=== PATIENT | male | born 1985 | race Caucasian/White ===

== ENCOUNTER 2017-02-14 12:13 | Emergency (ER) | payer SELFPAY ==
[~2017-02-14] VITALS: Ht 177.8 cm; Wt 86.2 kg
--- NOTE | 2017-02-14 13:10 | ED.ADGEN ---
Past History Past Medical History: No Pertinent History Past Surgical History: No Surgical History Alcohol Use: Occasionally Drug Use: None Adult General HPI HPI Patient is a [32-year-old man, who presents emergency Department with a complaint of progressive swelling in his left lower extremity. Patient is a week ago he noticed a "pocket of swelling", and the medial aspect of his left ankle, he states that over the last week it has progressively gotten worse, with swelling spreading up now to his groin. He also notes that there is blanching of the skin, he states that he is has felt hot at night, denies any street fevers or chills, nausea or vomiting, any weakness, numbness, tingling, chest pain, shortness breath, rashes, travel, recent surgery, history of DVT or PE in himself or family members. Denies any trauma to the area. He states he took ibuprofen last night, taken no medications today, is denying pain currently. Denies any similar symptoms previously. Review of Systems Review of Systems Constitutional: Denies fever or chills [] Eyes: Denies change in visual acuity, redness, or eye pain [] HENT: Denies nasal congestion or sore throat [] Respiratory: Denies cough or shortness of breath [] Cardiovascular: No additional information not addressed in HPI [] GI: Denies abdominal pain, nausea, vomiting, bloody stools or diarrhea [] : Denies dysuria or hematuria [] Musculoskeletal: Denies back pain, swelling and soreness in the left lower extremity progressively worsening over the past week. Integument: Denies rash or skin lesions [] Neurologic: Denies headache, focal weakness or sensory changes [] Endocrine: Denies polyuria or polydipsia [] Current Medications Current Medications Current Medications Medications (Trade) Dose Ordered Sig/Lauren Start Time Stop Time Status Last Admin Dose Admin Fentanyl Citrate (Fentanyl 2ml Vial) 25 mcg PRN Q15MIN PRN 02/14/17 13:15 02/14/17 17:56 DC Heparin Sodium (Porcine) 1,000 unit PRN Q6HRS PRN 02/14/17 16:30 02/14/17 17:56 DC Heparin Sodium/ Dextrose 500 ml @ 0 mls/hr CONT PRN 02/14/17 16:30 02/14/17 17:56 DC 02/14/17 17:10 28 MLS/HR Info (Do NOT chart on this entry -- for MONITORING) 1 each PRN DAILY PRN 02/14/17 15:30 02/14/17 17:56 DC Iohexol (Omnipaque 300 Mg/ml) 75 ml 1X ONCE 02/14/17 15:30 02/14/17 15:31 DC 02/14/17 15:48 75 ML Sodium Chloride 1,000 ml @ 1,000 mls/hr 1X ONCE 02/14/17 15:40 02/14/17 16:39 DC 02/14/17 15:40 1,000 MLS/HR Allergies Allergies Allergies Coded Allergies Type Severity Reaction Last Updated Verified No Known Drug Allergies 02/14/17 No Physical Exam Physical Exam Constitutional: Well developed, well nourished, no acute distress, non-toxic appearance. [] HENT: Normocephalic, atraumatic, bilateral external ears normal, oropharynx moist, no oral exudates, nose normal. [] Eyes: PERRLA, EOMI, conjunctiva normal, no discharge. [] Neck: Normal range of motion, no tenderness, supple, no stridor. [] Cardiovascular:Heart rate regular rhythm, no murmur, S1, S2, rubs or gallops. [] Lungs & Thorax: Bilateral breath sounds clear to auscultation, no wheezing, rhonchi, rales. No chest or crepitus or tenderness. [] Abdomen: Bowel sounds normal, soft, no tenderness, no rebound, rigidity, no guarding, no masses, no pulsatile masses. [] Skin: Warm, dry, no erythema, no rash. [] Back: No tenderness, no CVA tenderness. [] Extremities: No tenderness, patient with edema and blanching the skin noted from the dorsal aspect of the foot up to the groin, no discrete rashes or petechiae noted, decreased pedal and popliteal pulses on the left versus the right, left lower extremity has no abnormality identified, other extremities are unremarkable. Neurologic: Alert and oriented X 3, normal motor function, normal sensory function, no focal deficits noted. [] Psychologic: Affect normal, judgement normal, mood normal. [] Current Patient Data Vital Signs Vital Signs Date Time Temp Pulse Resp B/P (MAP) Pulse Ox O2 Delivery O2 Flow Rate FiO2 02/14/17 14:30 118 18 128/80 (96) 98 02/14/17 12:13 98.2 Room Air Lab Results Laboratory Tests Test 02/14/17 13:10 02/14/17 16:46 White Blood Count 8.2 x10^3/uL (4.0-11.0) Red Blood Count 4.71 x10^6/uL (4.30-5.70) Hemoglobin 15.6 g/dL (13.0-17.5) Hematocrit 45.2 % (39.0-53.0) Mean Corpuscular Volume 96 fL (79-100) Mean Corpuscular Hemoglobin 33 pg (25-35) Mean Corpuscular Hemoglobin Concent 35 g/dL (31-37) Red Cell Distribution Width 13.2 % (11.5-14.5) Platelet Count 169 x10^3/uL (140-400) Neutrophils (%) (Auto) 70 % (31-73) Lymphocytes (%) (Auto) 9 % (24-48) L Monocytes (%) (Auto) 16 % (0-9) H Eosinophils (%) (Auto) 4 % (0-3) H Basophils (%) (Auto) 1 % (0-3) Neutrophils # (Auto) 5.7 x10^3uL (1.8-7.7) Lymphocytes # (Auto) 0.8 x10^3/uL (1.0-4.8) L Monocytes # (Auto) 1.3 x10^3/uL (0.0-1.1) H Eosinophils # (Auto) 0.3 x10^3/uL (0.0-0.7) Basophils # (Auto) 0.1 x10^3/uL (0.0-0.2) Prothrombin Time 9.9 SEC (9.4-11.4) Prothrombin Time INR 1.0 (0.9-1.1) PTT 25 SEC (23-33) Sodium Level 137 mmol/L (136-145) Potassium Level 3.7 mmol/L (3.5-5.1) Chloride Level 100 mmol/L (98-107) Carbon Dioxide Level 30 mmol/L (21-32) Anion Gap 7 (6-14) Blood Urea Nitrogen 7 mg/dL (8-26) L Creatinine 0.9 mg/dL (0.7-1.3) Estimated GFR (Cockcroft-Gault) 99.1 BUN/Creatinine Ratio 8 (6-20) Glucose Level 93 mg/dL (70-99) Calcium Level 8.7 mg/dL (8.5-10.1) Total Bilirubin 1.5 mg/dL (0.2-1.0) H Aspartate Amino Transferase (AST) 36 U/L (15-37) Alanine Aminotransferase (ALT) 53 U/L (16-63) Alkaline Phosphatase 104 U/L (46-116) Total Protein 7.3 g/dL (6.4-8.2) Albumin 3.7 g/dL (3.4-5.0) Albumin/Globulin Ratio 1.0 (1.0-1.7) Urine Collection Type Unknown Urine Color Yellow Urine Clarity Clear Urine pH 6.5 Urine Specific [place] <=1.005 Urine Protein Neg (NEG-TRACE) Urine Glucose (UA) Neg mg/dL (NEG) Urine Ketones (Stick) >=160 mg/dL (NEG) Urine Blood Small (NEG) Urine Nitrite Neg (NEG) Urine Bilirubin Neg (NEG) Urine Urobilinogen Dipstick 0.2 mg/dL (0.2 mg/dL) Urine Leukocyte Esterase Neg (NEG) Urine RBC 1-2 /HPF (0-2) Urine WBC Occ /HPF (0-4) Urine Squamous Epithelial Cells Occ /LPF Urine Bacteria 0 /HPF (0-FEW) Urine Mucus Slight /LPF EKG EKG ECG: Rhythm strip: Sinus tachycardia, heart rate 107 beats/minute, no ectopy. As directed by me. Radiology/Procedures Radiology/Procedures [][address] [address] IMAGING REPORT Signed PATIENT: LISA FONTAINE ACCOUNT: [id number] : 1985 LOCATION: ER AGE: 32 SEX: M EXAM STATUS: PRE ER ORD. PHYSICIAN: CARLTON DE LA CRUZ DO REASON: Swelling/pain LT LEG PROCEDURE: VENOUS LOWER EXT BILATERAL Left lower extremity venous ultrasound, 02/14/2017: History: Leg swelling Duplex evaluation of the major deep veins in the left lower extremity was performed including grayscale, color-flow and spectral Doppler analysis. There is nonocclusive echogenic thrombus in the common femoral vein. There is occlusive thrombus throughout the femoral vein in the thigh and in the popliteal vein. Occlusive thrombus extends into the posterior tibial and peroneal veins in the left calf. The visualized portion of the left greater saphenous vein at the saphenofemoral junction is patent. The right common femoral vein is patent. IMPRESSION: Extensive deep vein thrombosis in the left femoral and popliteal veins extending into the calf as described above. DICTATED AND SIGNED BY: GOYO MATTHEWS MD DATE: 02/14/17 4435 CC: CARLTON DE LA CRUZ DO; PCP,NO ~ [address] [address] IMAGING REPORT Signed PATIENT: LISA FONTAINE ACCOUNT: [id number] : 1985 LOCATION: ER AGE: 32 SEX: M EXAM STATUS: REG ER ORD. PHYSICIAN: CARLTON DE LA CRUZ DO REASON: Extensive unprovoked DVT/L side chest pain, r/o PE PROCEDURE: CT ABD PELV W/ IV CONTRST ONLY CT abdomen/pelvis Indication: Left leg swelling for one week. Possible DVT. Technique: CT abdomen/pelvis with 75 mL of Omnipaque 300 with multi planar reformats. Comparison: None Findings: Diffuse fatty infiltration of the liver noted. No focal hepatic lesion. Spleen within normal limits. No radiopaque gallstones. Pancreas within normal limits. Adrenal glands within normal limits. No hydronephrosis or suspicious renal lesion area and no pathologically enlarged retroperitoneal lymph nodes. No bowel obstruction. Circumferential bladder wall thickening noted without focal lesion. Prostate and seminal vesicles within normal limits. Nonspecific stranding densities are seen in the presacral fat. The left common iliac vein, external and internal iliac veins, and common femoral vein are distended with intraluminal thrombus up to the level of bifurcation of the IVC. Reactive left pelvic lymph nodes noted.The IVC, right common iliac vein, renal veins and portal vein are patent. No suspicious bony lesions. Impression: 1. Acute DVT within the left common femoral vein extending up to the level of the IVC bifurcation. Right common iliac vein is patent 2. Moderate Hepatic steatosis 3. Circumferential bladder wall thickening may represent cystitis. Correlate with urinalysis. The critical findings discussed with Dr. De La Cruz on 02/14/17 at 4:26 PM. PQRS Compliance Statement: One or more of the following individualized dose reduction techniques were utilized for this examination: 1. Automated exposure control 2. Adjustment of the mA and/or kV according to patient size 3. Use of iterative reconstruction technique DICTATED AND SIGNED BY: ROMEO CEBALLOS DATE: 02/14/17 [id number] CC: CARLTON DE LA CRUZ DO; PCP,NO ~ Course & Med Decision Making Course & Med Decision Making Pertinent Labs and Imaging studies reviewed. (See chart for details) Discussion at bedside, concern for DVT, patient also noted to have slowly diminished pulses, which may be due to vascular congestion, initially ordered both ultrasound for vascular study of the veins, and also of the arteries, I did speak with the patient is agreeable this plan, laboratory studies, and is ordered analgesia although he is declining abnormalities at this time. Noted be mildly tachycardic. I did speak with the residential gas heat technician, who noted a very large DVT upon initial imaging, and therefore the arterial study was canceled. Noted to have extensive thrombus extending from the common femoral down to the popliteal veins. I spoke with the patient regarding this finding, he states he has had some weight loss and night sweats as stated, does not have any history of clotting disorders in himself or family members, and again has no inciting factors for DVT. Therefore if her discussion will obtain CT of the chest to evaluate for possible cause, to rule out PE, and also of the abdomen and pelvis to determine the extent of the clot, and to assess for any other abnormality. We discussed risk versus benefit of imaging, patient was agreeable with plan. Patient also and she had IV fluids. He remains comfortable this time , laboratory studies not reveal any concerning findings. Patient's PE study was unremarkable, imaging of abdomen and pelvis revealed acute DVT within the left common femoral vein extending up to the level of the IVC bifurcation. I did relay these findings to the patient, he has no contraindications, and we will initiate heparin at this time. I did speak with Dr. Crawford of interventional radiology, due to the size of clot burden, and age patient, thrombolysis as indicated, we'll transfer to [facility] for higher evaluation and treatment, with heparin infusing. Patient is agreeable to transfer. I did speak with Dr. Colvin of internal medicine, patient accepted his service as a full admission. Written consent obtained from patient. Patient will require a hypercoagulable workup, but at this time will initiate heparin and patient can be further evaluated at [facility] by hematology oncology once the DVT has been addressed. Patient resting comfortably, at time of transfer to EMS for transport to [facility] for management treatment as stated. Final Impression Final Impression [] Problems: Dragon Disclaimer Dragon Disclaimer This electronic medical record was generated, in whole or in part, using a voice recognition dictation system. Departure: Impression: Primary Impression: DVT (deep venous thrombosis) Disposition: 05 XFER OTHER Condition: IMPROVED Critical Care Time Critical care time was 25 minutes exclusive of procedures. CARLTON DE LA CRUZ DO Feb 14, 2017 13:10
[2017-02-14] MEDS ORDERED: fentaNYL PF 100 MCG/2 ML VIAL IV PRN (13:15)
[2017-02-14 13:24] LABS: BASO # 0.1 x10^3/uL (0.0-0.2); BASO % 1 % (0-3); EOS # 0.3 x10^3/uL (0.0-0.7); EOS % 4 % (0-3); HEMATOCRIT 45.2 % (39.0-53.0); HEMOGLOBIN 15.6 g/dL (13.0-17.5); LYMPH # 0.8 x10^3/uL (1.0-4.8); LYMPH % 9 % (24-48); MEAN CORPUSCULAR HEMOGLOBIN 33 pg (25-35); MEAN CORPUSCULAR HGB CONC 35 g/dL (31-37); MEAN CORPUSCULAR VOLUME 96 fL (79-100); MONO # 1.3 x10^3/uL (0.0-1.1); MONO % 16 % (0-9); NEUT # 5.7 x10^3uL (1.8-7.7); NEUT % 70 % (31-73); PLATELET COUNT 169 x10^3/uL (140-400); RED BLOOD COUNT 4.71 x10^6/uL (4.30-5.70); RED CELL DISTRIBUTION WIDTH 13.2 % (11.5-14.5); WHITE BLOOD COUNT 8.2 x10^3/uL (4.0-11.0)
[2017-02-14 13:35] LABS: ALBUMIN 3.7 g/dL (3.4-5.0); CALCIUM 8.7 mg/dL (8.5-10.1); CREATININE 0.9 mg/dL (0.7-1.3); GFR 99.1; POTASSIUM 3.7 mmol/L (3.5-5.1); TOTAL BILIRUBIN 1.5 mg/dL (0.2-1.0); TOTAL PROTEIN 7.3 g/dL (6.4-8.2)
[2017-02-14 14:30] VITALS: BP 128/80
--- NOTE | 2017-02-14 14:55 | RAD ---
Left lower extremity venous ultrasound, 02/14/2017: History: Leg swelling Duplex evaluation of the major deep veins in the left lower extremity was performed including grayscale, color-flow and spectral Doppler analysis. There is nonocclusive echogenic thrombus in the common femoral vein. There is occlusive thrombus throughout the femoral vein in the thigh and in the popliteal vein. Occlusive thrombus extends into the posterior tibial and peroneal veins in the left calf. The visualized portion of the left greater saphenous vein at the saphenofemoral junction is patent. The right common femoral vein is patent. IMPRESSION: Extensive deep vein thrombosis in the left femoral and popliteal veins extending into the calf as described above.
[2017-02-14] MEDS ORDERED: IOHEXOL 300 MG/ML 75 ML VIAL. IV ONE (15:30)
[2017-02-14] MEDS ORDERED: CONTRAST GIVEN MC PRN (15:30)
[2017-02-14] MEDS ORDERED: IV NORMAL SALINE 1,000ML 1,000 ML IV ONE (15:40)
--- NOTE | 2017-02-14 16:17 | RAD ---
CT angiogram of the chest Indication: Left leg swelling for one week. Chest pain. Rule out PE. Technique: CT angiogram of the chest with 75 mL of Omnipaque 300 with sagittal and coronal MIP reformats. Comparison: None Findings: Diagnostic quality PE study. No evidence of central, segmental or subsegmental filling defects within pulmonary arteries. Heart is normal in size. No pericardial or pleural effusion. Neck base is clear. No axillary, mediastinal or hilar adenopathy. Lungs are clear. No suspicious bony lesions. Impression: No PE. Lungs are clear. PQRS Compliance Statement: One or more of the following individualized dose reduction techniques were utilized for this examination: 1. Automated exposure control 2. Adjustment of the mA and/or kV according to patient size 3. Use of iterative reconstruction technique
--- NOTE | 2017-02-14 16:28 | RAD ---
CT abdomen/pelvis Indication: Left leg swelling for one week. Possible DVT. Technique: CT abdomen/pelvis with 75 mL of Omnipaque 300 with multi planar reformats. Comparison: None Findings: Diffuse fatty infiltration of the liver noted. No focal hepatic lesion. Spleen within normal limits. No radiopaque gallstones. Pancreas within normal limits. Adrenal glands within normal limits. No hydronephrosis or suspicious renal lesion area and no pathologically enlarged retroperitoneal lymph nodes. No bowel obstruction. Circumferential bladder wall thickening noted without focal lesion. Prostate and seminal vesicles within normal limits. Nonspecific stranding densities are seen in the presacral fat. The left common iliac vein, external and internal iliac veins, and common femoral vein are distended with intraluminal thrombus up to the level of bifurcation of the IVC. Reactive left pelvic lymph nodes noted.The IVC, right common iliac vein, renal veins and portal vein are patent. No suspicious bony lesions. Impression: 1. Acute DVT within the left common femoral vein extending up to the level of the IVC bifurcation. Right common iliac vein is patent 2. Moderate Hepatic steatosis 3. Circumferential bladder wall thickening may represent cystitis. Correlate with urinalysis. The critical findings discussed with Dr. Campbell on 02/14/17 at 4:26 PM. PQRS Compliance Statement: One or more of the following individualized dose reduction techniques were utilized for this examination: 1. Automated exposure control 2. Adjustment of the mA and/or kV according to patient size 3. Use of iterative reconstruction technique
[2017-02-14] MEDS ORDERED: HEPARIN 25,000UTS/500ML PREMIX 500 ML IV PRN (16:30)
[2017-02-14] MEDS ORDERED: HEPARIN for IV BOLUS 10,000 UNIT/10 ML VIAL. IV PRN ×2 (16:30)
[2017-02-14] MEDS ORDERED: HEPARIN for IV BOLUS 10,000 UNIT/10 ML VIAL. IV ONE (16:45)
[2017-02-14 17:19] LABS: BILIRUBIN,URINE NEG (NEG); CLARITY,URINE CLEAR; COLOR,URINE YELLOW; GLUCOSE,URINE NEG (NEG); NITRITE,URINE NEG (NEG); UROBILINOGEN,URINE 0.2 mg/dL (0.2 mg/dL)
[2017-02-14 17:20] LABS: BACTERIA,URINE 0 /HPF (0-FEW); SQUAMOUS EPITHELIAL CELL,UR OCC /LPF; WBC,URINE OCC /HPF (0-4)
== END 2017-02-14 17:52 | disposition short-term general hospital (02) ==
LOC: ER 12:13
DX: I82.402 Acute embolism and thrombosis of unspecified deep veins of left lower extremity (principal)
CPT/HCPCS: 36415; 71275; 74177; 80053; 81001; 85025; 85610; 85730; 93970; 96361; 96365; 99285; J1644; Q9967; J7030

== ENCOUNTER 2017-03-06 19:49 | Emergency (ER) | payer SELFPAY ==
--- NOTE | 2017-03-06 20:12 | EKG ---
[address] [address] Test Date: 2017-03-06 Test Time: 20:06:52 Pat Name: LISA FONTAINE Department: Room: Gender: M Enroller: : 1985 Requested By: NEMESIO COLLIER Order Number: [id number] Reading MD: Reniier De La Rosa Measurements Intervals [place] Rate: 79 P: 29 RI: 132 QRS: 33 QRSD: 92 T: 18 QT: 374 QTc: 430 Interpretive Statements SINUS RHYTHM Electronically Signed On 03-11-2017 10:45:31 CDT by Reinier De La Rosa
[2017-03-06] MEDS ORDERED: ONDANSETRON ODT 4 MG TAB.RAPDIS PO ONE (21:00)
[2017-03-06] MEDS ORDERED: IV NORMAL SALINE 1,000ML 1,000 ML IV ONE (21:15)
[2017-03-06 21:33] LABS: BASO # 0.1 x10^3/uL (0.0-0.2); BASO % 1 % (0-3); EOS # 0.2 x10^3/uL (0.0-0.7); EOS % 5 % (0-3); HEMATOCRIT 43.9 % (39.0-53.0); HEMOGLOBIN 15.4 g/dL (13.0-17.5); LYMPH # 1.4 x10^3/uL (1.0-4.8); LYMPH % 28 % (24-48); MEAN CORPUSCULAR HEMOGLOBIN 33 pg (25-35); MEAN CORPUSCULAR HGB CONC 35 g/dL (31-37); MEAN CORPUSCULAR VOLUME 95 fL (79-100); MONO # 0.4 x10^3/uL (0.0-1.1); MONO % 9 % (0-9); NEUT # 2.7 x10^3uL (1.8-7.7); NEUT % 56 % (31-73); PLATELET COUNT 259 x10^3/uL (140-400); RED BLOOD COUNT 4.64 x10^6/uL (4.30-5.70); WHITE BLOOD COUNT 4.8 x10^3/uL (4.0-11.0)
[2017-03-06 21:36] LABS: ALBUMIN 4.3 g/dL (3.4-5.0); ALBUMIN/GLOBULIN RATIO 1.4 (1.0-1.7); CALCIUM 8.8 mg/dL (8.5-10.1); GFR 87.7; POTASSIUM 3.5 mmol/L (3.5-5.1); TOTAL BILIRUBIN 1.2 mg/dL (0.2-1.0); TOTAL PROTEIN 7.4 g/dL (6.4-8.2)
--- NOTE | 2017-03-06 22:28 | PHYS DOC ---
Past History Past Medical History: DVT Past Surgical History: Other Additional Smoking Information: uses chewing tobacco Alcohol Use: None Drug Use: None Adult General Chief Complaint Chief Complaint: FATIGUE HPI HPI Patient is a 32 year old M who presents with generalized fatigue and nausea. He was recently diagnosed with a large DVT extending from his foot to the renal artery. Subsequently he did have 3 procedures to remove the clot and was started on Eliquis. He feels that these symptoms have been worsening over the past days and weeks. He is unsure if the Eliquis is related or not. Tingling in his left hand and right anterior thigh but seemed to be constant. He has no exacerbating or alleviating factors. Review of Systems Review of Systems Constitutional: Denies fever or chills [] Eyes: Denies change in visual acuity, redness, or eye pain [] HENT: Denies nasal congestion or sore throat [] Respiratory: Denies cough or shortness of breath [] Cardiovascular: No additional information not addressed in HPI [] GI: Denies abdominal pain, bloody stools or diarrhea [] : Denies dysuria or hematuria [] Musculoskeletal: Denies back pain or joint pain [] Integument: Denies rash or skin lesions [] Neurologic: Negative except history of present illness Endocrine: Denies polyuria or polydipsia [] Family History Family History No significant cardiac, GI, or autoimmune family history Current Medications Current Medications Current Medications Medications (Trade) Dose Ordered Sig/Lauren Start Time Stop Time Status Last Admin Dose Admin Ondansetron HCl (Zofran Odt) 4 mg 1X ONCE 03/06/17 21:00 03/06/17 21:01 DC 03/06/17 21:05 4 MG Sodium Chloride 1,000 ml @ 1,000 mls/hr 1X ONCE 03/06/17 21:15 03/06/17 22:14 DC Allergies Allergies Allergies Coded Allergies Type Severity Reaction Last Updated Verified No Known Drug Allergies 02/14/17 No Physical Exam Physical Exam Constitutional: Well developed, well nourished, no acute distress, non-toxic appearance. [] HENT: Normocephalic, atraumatic, bilateral external ears normal, oropharynx moist, no oral exudates, nose normal. [] Eyes: PERRLA, EOMI, conjunctiva normal, no discharge. [] Neck: Normal range of motion, no tenderness, supple, no stridor. [] Cardiovascular:Heart rate regular rhythm, no murmur [] Lungs & Thorax: Bilateral breath sounds clear to auscultation [] Abdomen: Bowel sounds normal, soft, no tenderness, no masses, no pulsatile masses. [] Skin: Warm, dry, no erythema, no rash. [] Back: No tenderness, no CVA tenderness. [] Extremities: No tenderness, no cyanosis, no clubbing, ROM intact, no edema. [] Neurologic: Alert and oriented X 3, normal motor function, normal sensory function, no focal deficits noted. [] Psychologic: Affect normal, judgement normal, mood normal. [] Current Patient Data Vital Signs Vital Signs Date Time Temp Pulse Resp B/P (MAP) Pulse Ox O2 Delivery O2 Flow Rate FiO2 03/06/17 19:55 98.7 100 16 98 Room Air Lab Results Laboratory Tests Test 03/06/17 21:05 White Blood Count 4.8 x10^3/uL (4.0-11.0) Red Blood Count 4.64 x10^6/uL (4.30-5.70) Hemoglobin 15.4 g/dL (13.0-17.5) Hematocrit 43.9 % (39.0-53.0) Mean Corpuscular Volume 95 fL (79-100) Mean Corpuscular Hemoglobin 33 pg (25-35) Mean Corpuscular Hemoglobin Concent 35 g/dL (31-37) Red Cell Distribution Width 14.0 % (11.5-14.5) Platelet Count 259 x10^3/uL (140-400) Neutrophils (%) (Auto) 56 % (31-73) Lymphocytes (%) (Auto) 28 % (24-48) Monocytes (%) (Auto) 9 % (0-9) Eosinophils (%) (Auto) 5 % (0-3) H Basophils (%) (Auto) 1 % (0-3) Neutrophils # (Auto) 2.7 x10^3uL (1.8-7.7) Lymphocytes # (Auto) 1.4 x10^3/uL (1.0-4.8) Monocytes # (Auto) 0.4 x10^3/uL (0.0-1.1) Eosinophils # (Auto) 0.2 x10^3/uL (0.0-0.7) Basophils # (Auto) 0.1 x10^3/uL (0.0-0.2) Sodium Level 142 mmol/L (136-145) Potassium Level 3.5 mmol/L (3.5-5.1) Chloride Level 102 mmol/L (98-107) Carbon Dioxide Level 23 mmol/L (21-32) Anion Gap 17 (6-14) H Blood Urea Nitrogen 5 mg/dL (8-26) L Creatinine 1.0 mg/dL (0.7-1.3) Estimated GFR (Cockcroft-Gault) 87.7 BUN/Creatinine Ratio 5 (6-20) L Glucose Level 91 mg/dL (70-99) Calcium Level 8.8 mg/dL (8.5-10.1) Magnesium Level 2.0 mg/dL (1.8-2.4) Total Bilirubin 1.2 mg/dL (0.2-1.0) H Aspartate Amino Transferase (AST) 57 U/L (15-37) H Alanine Aminotransferase (ALT) 72 U/L (16-63) H Alkaline Phosphatase 105 U/L (46-116) Total Protein 7.4 g/dL (6.4-8.2) Albumin 4.3 g/dL (3.4-5.0) Albumin/Globulin Ratio 1.4 (1.0-1.7) EKG EKG Normal sinus rhythm, no axis deviation, no ST segment changes, normal rate Course & Med Decision Making Course & Med Decision Making Pertinent Labs and Imaging studies reviewed. (See chart for details) Pharmacy was contacted to review side effects of Eliquis. Nausea has a 3% incidence. It is possible that his liver enzyme elevation may be related. He was advised to consider changing anticoagulation medication with his primary care doctor. He to also describes multiple social stressors for which she was encouraged to consider meditation and further management with his primary care doctor Rosedna Disclaimer Rosenda Disclaimer This chart was dictated in whole or in part using Voice Recognition software in a busy, high-work load, and often noisy Emergency Department environment. It may contain unintended and wholly unrecognized errors or omissions. Departure Departure: Impression: Primary Impression: Fatigue Disposition: 01 HOME, SELF-CARE Referrals: PCPJOLEEN (PCP) Patient Instructions: Apixaban oral tablets Additional Instructions: Padilla was seen in the emergency department for multiple concerns. No emergency medical condition was found on history or physical exam. He did have normal labs. He was given a liter of fluids to treat his symptoms. He was advised to follow-up with his primary care doctor as soon as possible for further management of his medical condition. Problem Qualifiers Primary Impression: Fatigue Fatigue type: unspecified Qualified Codes: R53.83 - Other fatigue NEMESIO COLLIER MD Mar 06, 2017 22:28
[2017-03-06 22:34] VITALS: BP 101/54
== END 2017-03-06 22:10 | disposition home or self-care (01) ==
LOC: ER 19:49
DX: R11.0 Nausea (principal); R53.83 Other fatigue; R20.0 Anesthesia of skin; Z86.718 Personal history of other venous thrombosis and embolism; F17.220 Nicotine dependence, chewing tobacco, uncomplicated
CPT/HCPCS: 36415; 80053; 83735; 85025; 93005; 96360; 96361; 99285; Q0162; J7030

== ENCOUNTER → 2017-08-16 | Outpatient (CLI) | payer SELFPAY ==
--- NOTE | 2017-08-16 17:56 | RAD ---
EXAM: Left lower extremity venous Doppler sonogram. HISTORY: DVT. TECHNIQUE: [place] scale and color Doppler sonographic evaluation of the left lower extremity veins with spectral waveform analysis was performed. FINDINGS: There is nonocclusive deep venous thrombosis involving the left peroneal, popliteal, superficial femoral and common femoral veins. There is a tiny amount of flow within the superficial femoral and common femoral veins and slightly more flow within the popliteal, peroneal and posterior tibial veins. IMPRESSION: Extensive nonocclusive left lower extremity deep venous thrombosis involving the peroneal, popliteal, femoral and common femoral veins. Electronically signed by: Verónica Nichols MD (08/16/2017 5:53 PM) [facility]
== END | disposition home or self-care (01) ==
LOC: US 16:54
PROVIDERS: ATTEND Family Medicine
DX: I82.402 Acute embolism and thrombosis of unspecified deep veins of left lower extremity (principal); Z86.718 Personal history of other venous thrombosis and embolism
CPT/HCPCS: 93971

== ENCOUNTER → 2018-06-18 | Outpatient (CLI) | payer BC ==
--- NOTE | 2018-06-18 17:11 | RAD ---
Examination: VENOUS LOWER EXTREMITY LEFT History: prior hx of dvts Comparison/Correlation: 06/15/2018 left lower extremity venous duplex ultrasound exam Findings: Left lower extremity venous duplex ultrasound exam was performed. Color Doppler, spectral Doppler, and grayscale imaging performed. Compression and augmentation was utilized. Left common femoral vein stent is present. No flow evident within this region however. No flow identified involving the superficial femoral vein. Minimal flow within the deep femoral vein. Nonocclusive thrombus involving the popliteal vein identified. Flow is identified within posterior tibial veins. One of the peroneal veins has flow identified on color Doppler imaging. Greater saphenous vein is patent. Impression: Interval placement of a left common femoral venous stent. Complete thrombosis of the common femoral vein and superficial femoral vein is noted in the interval however. Thrombus more inferiorly involving left lower extremity is again seen. On 06/18/2018 at 1706, results were left on the voicemail of SHANNA Hoffman's office. Electronically signed by: Julien Harry MD (06/18/2018 5:07 PM) [id number]
== END | disposition home or self-care (01) ==
LOC: US 14:28
DX: I82.402 Acute embolism and thrombosis of unspecified deep veins of left lower extremity (principal)
CPT/HCPCS: 93971

== ENCOUNTER 2020-01-22 11:21 | Emergency (ER) | payer BC ==
[~2020-01-22] VITALS: Ht 180.3 cm; Wt 97.7 kg
[2020-01-22] MEDS ORDERED: IV NORMAL SALINE 1,000ML 1,000 ML IV ONE (11:45)
--- NOTE | 2020-01-22 11:49 | PHYS DOC ---
Past History Past Medical History: Anxiety, DVT Past Surgical History: Other Additional Past Surgical Histo: Left leg surgery (multiple) Alcohol Use: Sober Additional Alcohol Information: Sober for 1 month Drug Use: None General Adult EDM: Chief Complaint: LOWER EXTREMITY SWELLING HPI: HPI: 35-year-old male presents with 1 week history of right leg swelling. The swelling is all the way up to his groin. Patient has a long history of DVTs though he admits he may have had arterial clots. He is not sure which 1. He has had multiple clots in the left leg and only one previously in the right leg. This started after he was taking some regular NSAIDs for a few days for general leg and back discomfort. He is already on 100 mg of Lovenox daily. He denies chest pain, shortness of breath, fever, chills. He denies any trauma to the leg or falls. No definitive diagnosis for his hypercoagulable state have been identified. Review of Systems: Review of Systems: Constitutional: Denies fever or chills Eyes: Denies change in visual acuity HENT: Denies nasal congestion or sore throat Respiratory: Denies cough or shortness of breath Cardiovascular: Denies chest pain or edema GI: Denies abdominal pain, nausea, vomiting, bloody stools or diarrhea : Denies dysuria Musculoskeletal: Right leg swelling Integument: Denies rash Neurologic: Denies headache, focal weakness or sensory changes Endocrine: Denies polyuria or polydipsia Lymphatic: Denies swollen glands Psychiatric: Denies depression or anxiety Heart Score: Risk Factors: Risk Factors: DM, Current or recent (<one month) smoker, HTN, HLP, family history of CAD, obesity. Risk Scores: Score 0 - 3: 2.5% MACE over next 6 weeks - Discharge Home Score 4 - 6: 20.3% MACE over next 6 weeks - Admit for Clinical Observation Score 7 - 10: 72.7% MACE over next 6 weeks - Early Invasive Strategies Current Medications: Current Meds: Current Medications Medications (Trade) Dose Ordered Sig/Lauren Start Time Stop Time Status Last Admin Dose Admin Sodium Chloride 1,000 ml @ 1,000 mls/hr 1X ONCE 01/22/20 11:45 01/22/20 12:44 UNV Allergies: Allergies: Allergies Coded Allergies Type Severity Reaction Last Updated Verified No Known Drug Allergies 01/22/20 No Physical Exam: PE: Constitutional: Well developed, well nourished, no acute distress, non-toxic appearance. [] HENT: Normocephalic, atraumatic, bilateral external ears normal, oropharynx moist, no oral exudates, nose normal. [] Eyes: PERRLA, EOMI, conjunctiva normal, no discharge. [] Neck: Normal range of motion, no tenderness, supple, no stridor. [] Cardiovascular:Heart rate regular rhythm, no murmur [] Lungs & Thorax: Bilateral breath sounds clear to auscultation [] Abdomen: Bowel sounds normal, soft, no tenderness, no masses, no pulsatile masses. [] Skin: Warm, dry, no erythema, no rash. [] Back: No tenderness, no CVA tenderness. [] Extremities: 4+ pitting edema of the right leg to the groin. [] Neurologic: Alert and oriented X 3, normal motor function, normal sensory function, no focal deficits noted. [] Psychologic: Affect normal, judgement normal, mood normal. [] Current Patient Data: Vital Signs: Vital Signs Date Time Temp Pulse Resp B/P (MAP) Pulse Ox O2 Delivery O2 Flow Rate FiO2 01/22/20 11:21 98.1 110 20 146/87 (106) 98 Room Air EKG: EKG: [] Radiology/Procedures: Radiology/Procedures: [] Impressions: Right lower extremity venous Doppler ultrasound History: Reason: leg swelling, hx DVTs / Comparison: None. Procedure: Color flow Doppler, Doppler spectral analysis, and 2D images are obtained with and without compression in the area of the common femoral vein, superficial femoral vein - femoral vein junction, main femoral vein (superficial femoral vein) and popliteal vein. Veins of the proximal calf are also imaged. Findings: There is noncompressibility and lack of color flow due to complete occlusion of the common femoral vein, superficial femoral vein, popliteal vein, and posterior tibial vein. Greater saphenous vein is also noted to be occluded. There is moderate subcutaneous edema of the calf. IMPRESSION: There is occlusive DVT throughout the right lower extremity. Electronically signed by: Kulwant Grijalva MD (01/22/2020 12:27 PM) [id number] DICTATED AND SIGNED BY: KULWANT GRIJALVA MD DATE: 01/22/20 1225 CC: JULIANO MERCHANT DO; HUSSAIN ESCOBAR MD ~ Course & Med Decision Making: Course & Med Decision Making Pertinent Labs and Imaging studies reviewed. (See chart for details) The patient's labs are unremarkable. His lower extremity ultrasound is significant for very large clot of the venous system of the entire right leg. The patient will need to be admitted. He would prefer to go to [facility]. I spoke with the transfer center and Dr. Weinstein has accepted the patient for transfer and admission. We have started the patient on PE/DVT treatment dose heparin drip. The patient will go by ambulance. He is only required 4 mg of morphine for pain control. [] Dragon Disclaimer: Dragon Disclaimer: This electronic medical record was generated, in whole or in part, using a voice recognition dictation system. Departure Departure: Impression: Primary Impression: DVT (deep venous thrombosis) Qualified Codes: I82.411 - Acute embolism and thrombosis of right femoral vein Disposition: XFER SHT-TRM HOSP Condition: STABLE Referrals: HUSSAIN ESCOBAR MD (PCP) Justification of Admission: Justification of Admission: Justification of Admission Dx: N/A JULIANO MERCHANT DO Jan 22, 2020 11:48
[2020-01-22 12:06] LABS: BASO % 0 % (0-3); EOS # 0.6 x10^3/uL (0.0-0.7); EOS % 9 % (0-3); HEMATOCRIT 40.3 % (39.0-53.0); LYMPH # 0.8 x10^3/uL (1.0-4.8); LYMPH % 11 % (24-48); MEAN CORPUSCULAR HEMOGLOBIN 32 pg (25-35); MEAN CORPUSCULAR HGB CONC 35 g/dL (31-37); MEAN CORPUSCULAR VOLUME 93 fL (79-100); MONO # 0.6 x10^3/uL (0.0-1.1); MONO % 8 % (0-9); NEUT # 5.4 x10^3uL (1.8-7.7); NEUT % 73 % (31-73); PLATELET COUNT 381 x10^3/uL (140-400); RED BLOOD COUNT 4.32 x10^6/uL (4.30-5.70); RED CELL DISTRIBUTION WIDTH 13.8 % (11.5-14.5); WHITE BLOOD COUNT 7.4 x10^3/uL (4.0-11.0)
[2020-01-22 12:08] LABS: CALCIUM 8.4 mg/dL (8.5-10.1); GFR 86.1; POTASSIUM 3.7 mmol/L (3.5-5.1)
[2020-01-22 12:14] LABS: ALBUMIN 3.3 g/dL (3.4-5.0); ALBUMIN/GLOBULIN RATIO 0.8 (1.0-1.7); TOTAL BILIRUBIN 0.8 mg/dL (0.2-1.0); TOTAL PROTEIN 7.2 g/dL (6.4-8.2)
[2020-01-22] MEDS ORDERED: MORPHINE SULFATE 4 MG/ML DISP.SYRIN. IV ONE (12:15)
--- NOTE | 2020-01-22 12:30 | RAD ---
Right lower extremity venous Doppler ultrasound History: Reason: leg swelling, hx DVTs / Comparison: None. Procedure: Color flow Doppler, Doppler spectral analysis, and 2D images are obtained with and without compression in the area of the common femoral vein, superficial femoral vein - femoral vein junction, main femoral vein (superficial femoral vein) and popliteal vein. Veins of the proximal calf are also imaged. Findings: There is noncompressibility and lack of color flow due to complete occlusion of the common femoral vein, superficial femoral vein, popliteal vein, and posterior tibial vein. Greater saphenous vein is also noted to be occluded. There is moderate subcutaneous edema of the calf. IMPRESSION: There is occlusive DVT throughout the right lower extremity. Electronically signed by: Kulwant Grijalva MD (01/22/2020 12:27 PM) [id number]
[2020-01-22 12:42] LABS: % BANDS 3 % (0-9); % EOS 5 % (0-5); % LYMPHS 12 % (24-48); % MONOS 5 % (0-10); % SEGS 75 % (35-66)
[2020-01-22 12:43] LABS: PLT ESTIMATE ADEQUATE (ADEQUATE)
[2020-01-22] MEDS ORDERED: HEPARIN for IV BOLUS 10,000 UNIT/10 ML VIAL. IV PRN ×3 (13:15)
[2020-01-22] MEDS ORDERED: HEPARIN 25,000UTS/250ML PREMIX 250 ML IV PRN (13:20)
[2020-01-22] MEDS ORDERED: HEPARIN for IV BOLUS 10,000 UNIT/10 ML VIAL. IV ONE (13:20)
[2020-01-22 14:00] VITALS: BP 121/80
== END 2020-01-22 14:45 | disposition home or self-care (01) ==
LOC: ER 11:21
DX: I82.411 Acute embolism and thrombosis of right femoral vein (principal); F41.9 Anxiety disorder, unspecified
CPT/HCPCS: 36415; 80053; 85007; 85025; 85610; 85730; 93971; 96365; 96375; 96376; 99284; J1644; J2270; J7030

== ENCOUNTER 2020-03-19 17:04 | Emergency (ER) | payer BC ==
[~2020-03-19] VITALS: Ht 180.3 cm; Wt 89.9 kg
[2020-03-19 17:04] VITALS: BP 143/90
[2020-03-19] MEDS ORDERED: ONDANSETRON PF 4 MG/2 ML VIAL. ONE (17:18)
--- NOTE | 2020-03-19 17:24 | EKG ---
[address] [address] Test Date: 2020-03-19 Test Time: 17:18:15 Pat Name: LISA FONTAINE Department: Room: Gender: M Documentation Writer: : 1985 Requested By: INOCENTE ECHAVARRIA Order Number: [id number] Reading MD: Measurements Intervals [place] Rate: 122 P: 47 WV: 132 QRS: 6 QRSD: 88 T: 28 QT: 296 QTc: 423 Interpretive Statements SINUS TACHYCARDIA OTHERWISE NORMAL ECG RI6.02 No previous ECG available for comparison
--- NOTE | 2020-03-19 17:27 | PHYS DOC ---
Past History Past Medical History: A-Fib, Alcoholism, Anxiety, DVT (INOCENTE ECHAVARRIA MD) Past Surgical History: Other Additional Past Surgical Histo: Left leg surgery (multiple) (INOCENTE ECHAVARRIA MD) Alcohol Use: Heavy Drug Use: None (INOCENTE ECHAVARRIA MD) General Adult EDM: Chief Complaint: WITHDRAWAL HPI: HPI: Patient is a 35-year-old male presents with a chief complaint of alcohol intoxication. Patient has a known clotting disorder had some seizures at [facility] a couple weeks ago and also complains of left leg pain. Patient had some intermittent vomiting and described some dark stools as well. Patient says that he drinks about 750 cc of alcohol per day he gets the shakes when he stops although he has never had a seizure. Patient says he is a intermittent abdominal pain but denies any fever.. Patient denies shortness of breath. (INOCENTE ECHAVARRIA MD) HPI: Patient is a 35-year-old male who presented to ER today for evaluation of nausea vomiting, generalized weakness, abdominal cramping, diarrhea for several days. Patient said he had not able to keep medicine down for 4 days. Patient is an alcoholic, he felt really depressed, he decided to stop drinking last night. Patient denies suicidal ideation, denies homicidal patient. Patient also complained of bilateral lower extremities pain and swelling for 2 weeks. Patient has history of DVT, currently on Lovenox. (NEMESIO PAL DO) Review of Systems: Review of Systems: Constitutional: Denies fever or chills Eyes: Denies change in visual acuity HENT: Denies nasal congestion or sore throat Respiratory: Denies cough or shortness of breath Cardiovascular: Denies chest pain but has bilateral lower extremity edema GI: Complains of intermittent abdominal pain nausea vomiting and intermittent dark stool : Denies dysuria Musculoskeletal: Denies back pain or joint pain Integument: Denies rash Neurologic: Denies headache, focal weakness or sensory changes Endocrine: Denies polyuria or polydipsia Lymphatic: Denies swollen glands (INOCENTE ECHAVARRIA MD) Heart Score: Risk Factors: Risk Factors: DM, Current or recent (<one month) smoker, HTN, HLP, family history of CAD, obesity. Risk Scores: Score 0 - 3: 2.5% MACE over next 6 weeks - Discharge Home Score 4 - 6: 20.3% MACE over next 6 weeks - Admit for Clinical Observation Score 7 - 10: 72.7% MACE over next 6 weeks - Early Invasive Strategies (INOCENTE ECHAVARRIA MD) Current Medications: Current Meds: Current Medications Medications (Trade) Dose Ordered Sig/Lauren Start Time Stop Time Status Last Admin Dose Admin Ondansetron HCl (Zofran) 4 mg STK-MED ONCE 03/19/20 17:18 03/19/20 17:18 DC (INOCENTE ECHAVARRIA MD) Allergies: Allergies: Allergies Coded Allergies Type Severity Reaction Last Updated Verified morphine Allergy Intermediate Hives 01/22/20 Yes (INOCENTE ECHAVARRIA MD) Physical Exam: PE: Constitutional: Well developed, mild acute distress tremulous HENT: Normocephalic, atraumatic, bilateral external ears normal, no trismus, nose normal. [] Eyes: PERRLA, EOMI, conjunctiva normal, no discharge. [] Neck: Normal range of motion, no tenderness, supple, no stridor. [] Cardiovascular: Tachycardia, mildly decreased peripheral pulses bilaterally Lungs & Thorax: Bilateral breath sounds clear Abdomen: soft, no tenderness, no masses, no pulsatile masses. [] Skin: Mild diaphoresis mild erythema to bilateral lower extremities Back: No tenderness, no CVA tenderness. [] Extremities: 2+ bilateral lower extremity edema. Palpable but decreased dorsalis pedis pulses bilaterally Neurologic: Slightly slurred speech and mildly confused, normal motor function, normal sensory function, no focal deficits noted. [] Psychologic: Blunted mood (INOCENTE ECHAVARRIA MD) PE: Extremities: lower extremities swelling, warm to the touch, positive bilateral DORSALID PEDIS PULSES. NO EVIDENCE OF ARTERIAL OCCLUSION. (NEMESIO PAL DO) Current Patient Data: Vital Signs: Vital Signs Date Time Temp Pulse Resp B/P (MAP) Pulse Ox O2 Delivery O2 Flow Rate FiO2 03/19/20 17:04 135 20 143/90 (107) 98 (INOCENTE ECHAVARRIA MD) Labs: Laboratory Tests Test 03/19/20 17:13 White Blood Count 3.1 x10^3/uL Red Blood Count 3.62 x10^6/uL Hemoglobin 11.6 g/dL Hematocrit 35.4 % Mean Corpuscular Volume 98 fL Mean Corpuscular Hemoglobin 32 pg Mean Corpuscular Hemoglobin Concent 33 g/dL Red Cell Distribution Width 19.4 % Platelet Count 118 x10^3/uL Neutrophils (%) (Auto) 68 % Lymphocytes (%) (Auto) 13 % Monocytes (%) (Auto) 17 % Eosinophils (%) (Auto) 1 % Basophils (%) (Auto) 1 % Neutrophils # (Auto) 2.1 x10^3uL Lymphocytes # (Auto) 0.4 x10^3/uL Monocytes # (Auto) 0.5 x10^3/uL Eosinophils # (Auto) 0.0 x10^3/uL Basophils # (Auto) 0.0 x10^3/uL Prothrombin Time 10.5 SEC Prothromb Time International Ratio 1.0 Activated Partial Thromboplast Time 27 SEC Sodium Level 131 mmol/L Potassium Level 3.2 mmol/L Chloride Level 91 mmol/L Carbon Dioxide Level 17 mmol/L Anion Gap 23 Blood Urea Nitrogen 8 mg/dL Creatinine 0.9 mg/dL Estimated GFR (Cockcroft-Gault) 97.2 BUN/Creatinine Ratio 9 Glucose Level 70 mg/dL Lactic Acid Level 3.9 mmol/L Calcium Level 8.6 mg/dL Magnesium Level 2.3 mg/dL Total Bilirubin 1.6 mg/dL Aspartate Amino Transf (AST/SGOT) 365 U/L Alanine Aminotransferase (ALT/SGPT) 128 U/L Alkaline Phosphatase 254 U/L Troponin I Quantitative < 0.017 ng/mL Total Protein 7.5 g/dL Albumin 3.4 g/dL Albumin/Globulin Ratio 0.8 Lipase 2860 U/L Ethyl Alcohol Level 70 mg/dL Current Medications Medications (Trade) Dose Ordered Sig/Lauren Route PRN Reason Start Time Stop Time Status Last Admin Dose Admin Ondansetron HCl (Zofran) 4 mg STK-MED ONCE .ROUTE 03/19/20 17:18 03/19/20 17:18 DC Multivitamins/ Minerals 10 ml/ Folic Acid 1 mg/ Thiamine HCl 100 mg/Lactated Ringer's 1,011.3 ml @ 1,011.3 mls/hr 1X ONCE IV 03/19/20 17:30 03/19/20 18:29 DC 03/19/20 18:01 Lorazepam (Ativan Inj) 2 mg 1X ONCE IVP 03/19/20 17:45 03/19/20 17:48 DC 03/19/20 17:59 Ondansetron HCl (Zofran) 4 mg 1X ONCE IVP 03/19/20 18:00 03/19/20 18:03 DC 03/19/20 17:58 Sodium Chloride 1,000 ml @ 1,000 mls/hr 1X ONCE IV 03/19/20 18:30 03/19/20 19:29 DC 03/19/20 19:28 Potassium Chloride (Klor-Con) 40 meq 1X ONCE PO 03/19/20 18:30 03/19/20 18:31 DC 03/19/20 20:56 Iohexol (Omnipaque 350 Mg/ml) 100 ml 1X ONCE IV 03/19/20 19:30 03/19/20 19:31 DC 03/19/20 20:33 Lorazepam (Ativan Inj) 2 mg 1X ONCE IVP 03/19/20 21:30 03/19/20 21:31 03/19/20 20:56 (NEMESIO PAL DO) EKG: EKG: [] EKG interpreted by co sinus tachycardia with a rate of 122 normal axis normal intervals normal ST segments (INOCENTE ECHAVARRIA MD) Radiology/Procedures: Radiology/Procedures: [] (INOCENTE ECHAVARRIA MD) Radiology/Procedures: [place] [address] IMAGING REPORT Signed PATIENT: LISA FONTAINE ACCOUNT: [id number] : 1985 LOCATION: ER AGE: 35 SEX: M EXAM STATUS: REG ER ORD. PHYSICIAN: INOCENTE ECHAVARRIA MD REASON: LEG PAIN PROCEDURE: VENOUS LOWER EXT BILATERAL Exam: Bilateral lower extremity venous duplex study INDICATION: Leg swelling TECHNIQUE: Using a combination of real-time ultrasound imaging and color-flow and pulse Doppler imaging techniques along with graded compression and augmentation, duplex evaluation of the deep venous systems of bilateral lower extremity was performed. Multiple images were obtained. Findings: Occlusive thrombus noted in the right common femoral vein, superficial femoral vein. Partial occlusive thrombus in the popliteal and posterior tibial veins. Partially occlusive thrombus in the left common femoral vein, superficial femoral vein with the proximal superficial femoral vein completely occluded. Additionally there is partially occlusive thrombus noted within the popliteal vein, posterior tibial vein on the left. IMPRESSION: Extensive bilateral DVT with occlusive thrombus in the right common femoral and superficial femoral vein as well as the left proximal superficial femoral vein. Nonocclusive thrombus is noted throughout the remainder of the visualized venous vasculature. Electronically signed by: Willy Melendez MD (03/19/2020 8:05 PM) [id number] DICTATED AND SIGNED BY: WILLY MELENDEZ MD DATE: 03/19/202004 CC: INOCENTE ECHAVARRIA MD; NEMESIO PAL DO; HUSSAIN ESCOBAR MD ~ [address] [address] IMAGING REPORT Signed PATIENT: LISA FONTAINE ACCOUNT: [id number] : 1985 LOCATION: ER AGE: 35 SEX: M EXAM STATUS: REG ER ORD. PHYSICIAN: INOCENTE ECHAVARRIA MD REASON: ETOH, VOMITING PROCEDURE: PORTABLE CHEST 1V EXAM: PORTABLE CHEST 1V 03/19/2020 5:19 PM CLINICAL INDICATION: EtOH, vomiting COMPARISON: None TECHNIQUE: AP upright view of the chest FINDINGS: The heart and mediastinum are normal. Lungs are hypoexpanded with mild bibasilar opacities, likely atelectasis. No pleural effusion or pneumothorax. No acute osseous abnormality. IMPRESSION: Hypoexpanded lungs with mild bibasilar opacities, likely atelectasis. Electronically signed by: Kayla Kapoor MD (03/19/2020 8:04 PM) [id number] DICTATED AND SIGNED BY: KAYLA KAPOOR MD DATE: 03/19/202003 CC: INOCENTE ECHAVARRIA MD; NEMESIO PAL DO; HUSSAIN ESCOBAR MD ~ [address] [address] IMAGING REPORT Signed PATIENT: LISA FONTAINE ACCOUNT: [id number] : 1985 LOCATION: ER AGE: 35 SEX: M EXAM STATUS: REG ER ORD. PHYSICIAN: NEMESIO PAL DO REASON: ABDOMINAL PAIN, NAUSEA, VOMITING, ELEVATED LFT, LIPASE PROCEDURE: ABDOMEN LTD Exam: Ultrasound abdomen limited Indication: Abdominal pain, nausea Technique: Real-time grayscale and color Doppler images of the right upper quadrant were obtained by the department jammer operator. Comparisons: None FINDINGS: Increased echogenicity of the liver. Hepatopedal flow in the portal vein. Gallbladder has a normal sonographic appearance. No pericholecystic fluid or wall thickening. Common bile duct measures 2 mm in diameter. Right kidney measures 13.2 cm in length. No hydronephrosis. Visualized portions aorta and IVC are unremarkable. IMPRESSION: 1. Hepatic steatosis. 2. Normal sonographic appearance of the gallbladder. No evidence for acute cholecystitis. 3. No right-sided hydronephrosis. Electronically signed by: Willy Melendez MD (03/19/2020 8:23 PM) [id number] DICTATED AND SIGNED BY: WILLY MELENDEZ MD DATE: 03/19/202022 CC: NEMESIO PAL DO; HUSSAIN ESCOBAR MD ~ [address] [address] IMAGING REPORT Signed PATIENT: LISA FONTAINE ACCOUNT: [id number] : 1985 LOCATION: ER AGE: 35 SEX: M EXAM STATUS: REG ER ORD. PHYSICIAN: NEMESIO PAL DO REASON: SHORTNESS OF AIR, EXTENSIVE LOWER EXTREMITIES DVT PROCEDURE: CT ANGIOGRAPHY CHEST Exam: CT of chest with contrast INDICATION: Shortness of air, bilateral DVTs TECHNIQUE: Sequential axial images through the chest obtained following the administration of 100 mL of Omni 350 IV contrast. Sagittal and coronal reformatted images were reconstructed from the axial data and reviewed. 3-D reformatted images were reconstructed from the axial data and reviewed. Comparisons: Ultrasound same day FINDINGS: Visualized portions of the thyroid are unremarkable. No enlarged mediastinal lymph nodes. Heart size is normal. No pericardial effusion. Thoracic aorta has a normal course and caliber. Pulmonary artery is not enlarged. Since subsegmental pulmonary embolus noted within the left upper lobe series 4 image 38. Airways are patent. No consolidation or pneumothorax. Strandy opacities at the dependent portion of the lungs, likely representing atelectasis. No suspicious lung nodules are identified. There is trace right-sided pleural effusion. Severe diffuse hepatic steatosis. No suspicious osseous lesions or acute fractures. IMPRESSION: Subsegmental pulmonary embolus in the left upper lobe. No evidence for right heart strain on this CT. Exposure: One or more of the following in the visualized dose reduction techniques were utilized for this examination: 1. Automated exposure control 2. Adjustment of the MA and/or KV according to patient size 3. Use of iterative of reconstructive technique Electronically signed by: Willy Melendez MD (03/19/2020 9:02 PM) [id number] DICTATED AND SIGNED BY: WILLY MELENDEZ MD DATE: 03/19/202101 CC: NEMESIO PLA DO; HUSSAIN ESCOBAR MD ~ (NEMESIO PAL DO) Course & Med Decision Making: Course & Med Decision Making Pertinent Labs and Imaging studies reviewed. (See chart for details) [] 35-year-old male comes in with alcohol-related problems. Patient also has multiple clotting disorders. Patient is tremulous and has some GI complaints as well as leg pain. Patient will need a thorough medical work-up including laboratory and ultrasound. Patient will most likely need medical admission. Labs and radiology studies are pending and care was signed out to Dr. Pal to follow-up on these and disposition is pending. (INOCENTE ECHAVARRIA MD) Course & Med Decision Making Patient has extensive DVT, has PE on left upper lobe, will need to be transferred to [facility] for further evaluation and treatment. He was treating here with ativan, iv fluid for alcohol withdrawal symptoms. Contacted [facility] transfer team, patient was accepted by Dr. Velasquez, to be transferred to [facility]. HEPARIN PROTOCOL FOR PE/DVT was initiated. (NEMESIO PLA DO) Dragon Disclaimer: Dragon Disclaimer: This electronic medical record was generated, in whole or in part, using a voice recognition dictation system. (INOCENTE ECHAVARRIA MD) Departure Departure: Impression: Primary Impression: AA (alcohol abuse) Additional Impressions: Acute pancreatitis Pulmonary embolus DVT of axillary vein, acute bilateral Alcohol withdrawal Dehydration Hypokalemia Disposition: [facility] ([facility] Condition: IMPROVED Referrals: HUSSAIN ESCOBAR MD (PCP) Justification of Admission: Justification of Admission: Justification of Admission Dx: N/A (INOCENTE ECHAVARRIA MD) Justification of Admission Dx: N/A (NEMESIO PAL DO) INOCENTE ECHAVARRIA MD Mar 19, 2020 17:27 NEMESIO PAL DO Mar 19, 2020 20:19
[2020-03-19] MEDS ORDERED: MVI, ADULT NO.4 WITH VIT K 10 ML, FOLIC ACID INJ 1 MG, THIAMINE INJ 100 MG in IV RINGER... IV ONE (17:30)
[2020-03-19 17:59] LABS: BASO % 1 % (0-3); EOS % 1 % (0-3); HEMATOCRIT 35.4 % (39.0-53.0); HEMOGLOBIN 11.6 g/dL (13.0-17.5); LYMPH # 0.4 x10^3/uL (1.0-4.8); LYMPH % 13 % (24-48); MEAN CORPUSCULAR HEMOGLOBIN 32 pg (25-35); MEAN CORPUSCULAR HGB CONC 33 g/dL (31-37); MEAN CORPUSCULAR VOLUME 98 fL (79-100); MONO # 0.5 x10^3/uL (0.0-1.1); MONO % 17 % (0-9); NEUT # 2.1 x10^3uL (1.8-7.7); NEUT % 68 % (31-73); PLATELET COUNT 118 x10^3/uL (140-400); RED BLOOD COUNT 3.62 x10^6/uL (4.30-5.70); RED CELL DISTRIBUTION WIDTH 19.4 % (11.5-14.5); WHITE BLOOD COUNT 3.1 x10^3/uL (4.0-11.0)
[2020-03-19] MEDS ORDERED: ONDANSETRON PF 4 MG/2 ML VIAL. IVP ONE (18:00)
[2020-03-19 18:06] LABS: CALCIUM 8.6 mg/dL (8.5-10.1); CREATININE 0.9 mg/dL (0.7-1.3); GFR 97.2; POTASSIUM 3.2 mmol/L (3.5-5.1)
[2020-03-19 18:21] LABS: ALBUMIN 3.4 g/dL (3.4-5.0); ALBUMIN/GLOBULIN RATIO 0.8 (1.0-1.7); MAGNESIUM 2.3 mg/dL (1.8-2.4); TOTAL BILIRUBIN 1.6 mg/dL (0.2-1.0); TOTAL PROTEIN 7.5 g/dL (6.4-8.2)
[2020-03-19] MEDS ORDERED: POTASSIUM CHLORIDE 20 MEQ TABLET.ER. PO ONE (18:30)
[2020-03-19] MEDS ORDERED: IV NORMAL SALINE 1,000ML 1,000 ML IV ONE ×2 (18:30→21:30)
[2020-03-19] MEDS ORDERED: IOHEXOL 350 MG/ML 100 ML VIAL. IV ONE (19:30)
--- NOTE | 2020-03-19 20:08 | RAD ---
Exam: Bilateral lower extremity venous duplex study INDICATION: Leg swelling TECHNIQUE: Using a combination of real-time ultrasound imaging and color-flow and pulse Doppler imaging techniques along with graded compression and augmentation, duplex evaluation of the deep venous systems of bilateral lower extremity was performed. Multiple images were obtained. Findings: Occlusive thrombus noted in the right common femoral vein, superficial femoral vein. Partial occlusive thrombus in the popliteal and posterior tibial veins. Partially occlusive thrombus in the left common femoral vein, superficial femoral vein with the proximal superficial femoral vein completely occluded. Additionally there is partially occlusive thrombus noted within the popliteal vein, posterior tibial vein on the left. IMPRESSION: Extensive bilateral DVT with occlusive thrombus in the right common femoral and superficial femoral vein as well as the left proximal superficial femoral vein. Nonocclusive thrombus is noted throughout the remainder of the visualized venous vasculature. Electronically signed by: Willy Gonzales MD (03/19/2020 8:05 PM) [id number]
--- NOTE | 2020-03-19 20:08 | RAD ---
EXAM: PORTABLE CHEST 1V 03/19/2020 5:19 PM CLINICAL INDICATION: EtOH, vomiting COMPARISON: None TECHNIQUE: AP upright view of the chest FINDINGS: The heart and mediastinum are normal. Lungs are hypoexpanded with mild bibasilar opacities, likely atelectasis. No pleural effusion or pneumothorax. No acute osseous abnormality. IMPRESSION: Hypoexpanded lungs with mild bibasilar opacities, likely atelectasis. Electronically signed by: Kayla Kapoor MD (03/19/2020 8:04 PM) [id number]
--- NOTE | 2020-03-19 20:26 | RAD ---
Exam: Ultrasound abdomen limited Indication: Abdominal pain, nausea Technique: Real-time grayscale and color Doppler images of the right upper quadrant were obtained by the department configuration specialist. Comparisons: None FINDINGS: Increased echogenicity of the liver. Hepatopedal flow in the portal vein. Gallbladder has a normal sonographic appearance. No pericholecystic fluid or wall thickening. Common bile duct measures 2 mm in diameter. Right kidney measures 13.2 cm in length. No hydronephrosis. Visualized portions aorta and IVC are unremarkable. IMPRESSION: 1. Hepatic steatosis. 2. Normal sonographic appearance of the gallbladder. No evidence for acute cholecystitis. 3. No right-sided hydronephrosis. Electronically signed by: Willy Gonzales MD (03/19/2020 8:23 PM) [id number]
--- NOTE | 2020-03-19 21:05 | RAD ---
Exam: CT of chest with contrast INDICATION: Shortness of air, bilateral DVTs TECHNIQUE: Sequential axial images through the chest obtained following the administration of 100 mL of Omni 350 IV contrast. Sagittal and coronal reformatted images were reconstructed from the axial data and reviewed. 3-D reformatted images were reconstructed from the axial data and reviewed. Comparisons: Ultrasound same day FINDINGS: Visualized portions of the thyroid are unremarkable. No enlarged mediastinal lymph nodes. Heart size is normal. No pericardial effusion. Thoracic aorta has a normal course and caliber. Pulmonary artery is not enlarged. Since subsegmental pulmonary embolus noted within the left upper lobe series 4 image 38. Airways are patent. No consolidation or pneumothorax. Strandy opacities at the dependent portion of the lungs, likely representing atelectasis. No suspicious lung nodules are identified. There is trace right-sided pleural effusion. Severe diffuse hepatic steatosis. No suspicious osseous lesions or acute fractures. IMPRESSION: Subsegmental pulmonary embolus in the left upper lobe. No evidence for right heart strain on this CT. Exposure: One or more of the following in the visualized dose reduction techniques were utilized for this examination: 1. Automated exposure control 2. Adjustment of the MA and/or KV according to patient size 3. Use of iterative of reconstructive technique Electronically signed by: Willy Gonzales MD (03/19/2020 9:02 PM) [id number]
[2020-03-19 21:39] LABS: AMPHETAMINE/METHAMPHETAMINE NEG (NEG); BARBITURATES NEG (NEG); BENZODIAZEPINES POS (NEG); CANNABINOIDS NEG (NEG); COCAINE NEG (NEG); METHADONE NEG (NEG); OPIATES NEG (NEG); PHENCYCLIDINE NEG (NEG)
[2020-03-19 21:45] LABS: BILIRUBIN,URINE SMALL (NEG); CLARITY,URINE CLEAR; COLOR,URINE AMBER; GLUCOSE,URINE NEG (NEG)
[2020-03-19 21:46] LABS: BACTERIA,URINE 0 /HPF (0-FEW); NITRITE,URINE NEG (NEG); SQUAMOUS EPITHELIAL CELL,UR OCC /LPF; UROBILINOGEN,URINE 0.2 mg/dL (0.2 mg/dL); WBC,URINE OCC /HPF (0-4)
[2020-03-19] MEDS ORDERED: HEPARIN 25,000UTS/250ML PREMIX 250 ML IV PRN (22:30)
[2020-03-19] MEDS ORDERED: HEPARIN for IV BOLUS 10,000 UNIT/10 ML VIAL. IV PRN ×3 (22:30)
[2020-03-19] MEDS ORDERED: ANTI-COAG MONITOR BY PHARMACY. MC PRN (22:45)
[2020-03-19] MEDS ORDERED: HEPARIN for IV BOLUS 10,000 UNIT/10 ML VIAL. IV ONE (23:00)
== END 2020-03-20 01:08 | disposition short-term general hospital (02) ==
LOC: ER 17:04
DX: F10.239 Alcohol dependence with withdrawal, unspecified (principal); K85.90 Acute pancreatitis without necrosis or infection, unspecified; I26.99 Other pulmonary embolism without acute cor pulmonale; I82.A13 Acute embolism and thrombosis of axillary vein, bilateral; E86.0 Dehydration; E87.6 Hypokalemia; I48.91 Unspecified atrial fibrillation; Z86.718 Personal history of other venous thrombosis and embolism; Z88.5 Allergy status to narcotic agent; Y90.3 Blood alcohol level of 60-79 mg/100 ml
CPT/HCPCS: 36415; 71045; 71275; 76705; 80053; 80307; 81001; 83605; 83690; 83735; 84484; 85025; 85610; 85730; 86850; 86900; 86901; 93005; 93970; 96361; 96365; 96367; 96375; 96376; 99285; G0480; J1644; J2060; J2405; J7030; J7120; Q9967

== ENCOUNTER → 2021-08-25 | Outpatient (CLI) | payer OTHER ==
--- NOTE | 2021-08-25 21:07 | RAD ---
STUDY: US Abdomen Complete INDICATION: Right upper quadrant pain. COMPARISON: No recent ultrasound. CT abdomen/pelvis 02/14/2017 TECHNIQUE: Real-time grayscale and color Doppler sonographic evaluation of the abdomen. Findings: Pancreas: Poorly visualized on account of bowel gas. No appreciable mass or fluid collection. Liver: Hyperechoic parenchyma. Prominent in size measuring 19.8 cm longitudinal. Aorta/IVC/Main Portal Vein: Patent main portal vein with normal flow direction. Limited visualization of the abdominal aorta and IVC secondary to bowel gas. Gall Bladder: Normal wall thickness at 0.2 cm. No stones or sludge visualized. Common Bile Duct: Nondilated at 0.2 cm. Right Kidney: Measures 11.5 cm in length. No hydronephrosis. Left Kidney: Measures 12.4 cm in length. No hydronephrosis. Spleen: Normal in size at 11 cm longitudinal. Miscellaneous: None. Impression: 1. Prominent size of the liver and with diffusely increased echogenicity typical of fatty infiltrati on. 2. Unremarkable gallbladder, kidneys and spleen. Nondilated common duct. 3. Incompletely evaluated pancreas, aorta and IVC secondary to bowel gas. Electronically signed by: FRENCH RICHTER MD (08/25/2021 9:04 PM) [facility]
== END ==
LOC: RAD 11:28
PROVIDERS: ATTEND Family Medicine
DX: K76.0 Fatty (change of) liver, not elsewhere classified (principal)
CPT/HCPCS: 76700

== ENCOUNTER 2021-09-17 02:58 | Emergency (ER) | payer OTHER ==
[~2021-09-17] VITALS: Ht 180.3 cm; Wt 109.2 kg
--- NOTE | 2021-09-17 03:39 | PHYS DOC ---
Past History Past Medical History: A-Fib, Alcoholism, Anxiety, DVT Past Surgical History: Other Additional Past Surgical Histo: Left leg surgery (multiple) Alcohol Use: Heavy Drug Use: None General Adult EDM: Chief Complaint: MULTIPLE COMPLAINTS HPI: HPI: 36-year-old male presents with right ankle pain, right upper quadrant pain, alcohol withdrawal. Patient states that he slipped and fell on some icy stairs about a week and half ago and he has had pain and bruising in his right ankle since that time. It is painful to bear weight. He has been drinking a pint to a liter of vodka daily since that time. His last drink was yesterday. He also has right upper quadrant abdominal pain and prominence of his superficial abdominal veins. He states that he had an ultrasound and is unsure of the results. He denies vomiting diarrhea. No fever or chills. He does have a tremor of the bilateral upper extremities. Review of Systems: Review of Systems: Constitutional: Denies fever or chills Eyes: Denies change in visual acuity HENT: Denies nasal congestion or sore throat Respiratory: Denies cough or shortness of breath Cardiovascular: Denies chest pain or edema GI: Right upper quadrant abdominal pain. Denies nausea, vomiting, bloody stools or diarrhea : Denies dysuria Musculoskeletal: Right ankle pain Integument: Denies rash Neurologic: Denies headache, focal weakness or sensory changes Endocrine: Denies polyuria or polydipsia Lymphatic: Denies swollen glands Psychiatric: Denies depression or anxiety Current Medications: Current Meds: Current Medications Medications (Trade) Dose Ordered Sig/Lauren Start Time Stop Time Status Last Admin Dose Admin Sodium Chloride 1,000 ml @ 1,000 mls/hr 1X ONCE 09/17/21 04:00 09/17/21 04:59 Allergies: Allergies: Allergies Coded Allergies Type Severity Reaction Last Updated Verified No Known Drug Allergies 09/17/21 No Physical Exam: PE: Constitutional: Well developed, well nourished, obese, no acute distress, non- toxic appearance. [] HENT: Normocephalic, atraumatic, bilateral external ears normal, oropharynx moist, no oral exudates, nose normal. [] Eyes: PERRLA, EOMI, conjunctiva normal, no discharge. [] Neck: Normal range of motion, no tenderness, supple, no stridor. [] Cardiovascular: Heart rate 110, regular rhythm, no murmur [] Lungs & Thorax: Bilateral breath sounds clear to auscultation [] Abdomen: Bowel sounds normal, palpable liver nearly to the level of the umbilicus, right upper quadrant tenderness, prominent superficial vasculature of the right abdomen. [] Skin: Large area of ecchymosis of the right ankle and foot [] Back: No tenderness, no CVA tenderness. [] Extremities: No tenderness, no cyanosis, no clubbing, ROM intact, no edema. [] Neurologic: Obvious tremor of the bilateral upper extremities. Alert and oriented X 3, normal motor function, normal sensory function, no focal deficits noted. [] Psychologic: Affect normal, judgement normal, mood anxious. [] Current Patient Data: Vital Signs: Vital Signs Date Time Temp Pulse Resp B/P (MAP) Pulse Ox O2 Delivery O2 Flow Rate FiO2 09/17/21 03:01 98.0 106 24 150/99 (116) 97 Room Air EKG: EKG: Sinus tachycardia, rate 108, normal axis, no ST elevation or depression. [] Radiology/Procedures: Radiology/Procedures: [] Impressions: EXAMINATION: CT ABDOMEN+PELVIS W CLINICAL HISTORY: etoh abuse, RUQ pain. TECHNIQUE: CT of the abdomen and pelvis was performed using standard technique, scanning from just above the dome of the diaphragm to the symphysis pubis fo llowing administration of intravenous contrast. CT Dose Reduction Employed: One or more of the following individualized dose reduction techniques were utilized for this examination: 1. Automated exposure control 2. Adjustment of the mA and/or kV according to patient size 3. Use of iterative reconstruction technique. COMPARISON: 02/14/2017 FINDINGS: Visualized heart and lungs unremarkable. Hepatomegaly with marked steatosis. Mildly dilated gallbladder. No biliary ductal dilation. Pancreas, spleen, adrenal glands, and kidneys unremarkable. Minimally filled urinary bladder. Nonenlarged prostate. Prominent intramural fat in the terminal ileum and throughout the colon, nonspecific but suggestive of inflammatory bowel disease/chronic colitis. No dilated bowel. Appendix within normal limits. No abdominal aortic or iliac artery aneurysm. Caval and bilateral iliac venous stent grafts. No evidence of acute osseous abnormality. Prominent subcutaneous abdominal varices. IMPRESSION: Mildly dilated gallbladder without calcified gallstones. If concerned for cholecystitis, recommend right upper quadrant ultrasound for further evaluation. Hepatomegaly with marked steatosis. Findings suggestive of inflammatory bowel disease/chronic colitis as described. Electronically signed by: Sampson Weir DO (09/17/2021 4:49 AM) [facility] DICTATED AND SIGNED BY: SAMPSON WEIR DO DATE: 09/17/21441 CC: JULIANO MERCHANT DO; HUSSAIN ESCOBAR MD ~ Heart Score: C/O Chest Pain: N/A Risk Factors: Risk Factors: DM, Current or recent (<one month) smoker, HTN, HLP, family h istory of CAD, obesity. Risk Scores: Score 0 - 3: 2.5% MACE over next 6 weeks - Discharge Home Score 4 - 6: 20.3% MACE over next 6 weeks - Admit for Clinical Observation Score 7 - 10: 72.7% MACE over next 6 weeks - Early Invasive Strategies Course & Med Decision Making: Course & Med Decision Making Pertinent Labs and Imaging studies reviewed. (See chart for details) The patient has a critically low sodium of 117. We will give him 1 L normal saline to start to gently correct this. He has several other abnormal labs. See labs for more details. He has a very large liver enzymes. The patient will need to be admitted to the hospital, but not this facility. He is willing to go to [facility]. I spoke with Dr. Marcial and he has accepted patient for admission and transfer to [facility] ICU. [] Fransiscaon Disclaimer: Dragcrista Disclaimer: This electronic medical record was generated, in whole or in part, using a voice recognition dictation system. Departure Departure: Impression: Primary Impression: Hyponatremia Additional Impressions: Cirrhosis of liver Alcoholism Fibula fracture Disposition: 02 SHORT TERM HOSPITAL Admitting Physician: Lola Marcial Condition: GUARDED Referrals: HUSSAIN ESCOBAR MD (PCP) JULIANO MERCHANT DO Sep 17, 2021 03:39
[2021-09-17] MEDS ORDERED: CONTRAST GIVEN. MC PRN (03:45)
[2021-09-17] MEDS ORDERED: IV NORMAL SALINE 1,000ML 1,000 ML IV ONE (04:00)
[2021-09-17] MEDS ORDERED: IOHEXOL 300 MG/ML 75 ML VIAL. IV ONE (04:00)
[2021-09-17 04:05] LABS: ALBUMIN 3.5 g/dL (3.4-5.0); ALBUMIN/GLOBULIN RATIO 1.1 (1.0-1.7); CREATININE 1.4 mg/dL (0.7-1.3); POTASSIUM 4.1 mmol/L (3.5-5.1); TOTAL BILIRUBIN 8.4 mg/dL (0.2-1.0); TOTAL PROTEIN 6.7 g/dL (6.4-8.2)
[2021-09-17 04:24] LABS: BASO % 0 % (0-3); EOS % 1 % (0-3); HEMATOCRIT 40.9 % (39.0-53.0); HEMOGLOBIN 13.8 g/dL (13.0-17.5); LYMPH # 0.2 x10^3/uL (1.0-4.8); LYMPH % 4 % (24-48); MEAN CORPUSCULAR HEMOGLOBIN 33 pg (25-35); MEAN CORPUSCULAR HGB CONC 34 g/dL (31-37); MEAN CORPUSCULAR VOLUME 97 fL (79-100); MONO # 0.7 x10^3/uL (0.0-1.1); MONO % 17 % (0-9); NEUT # 3.2 x10^3uL (1.8-7.7); NEUT % 78 % (31-73); PLATELET COUNT 93 x10^3/uL (140-400); RED CELL DISTRIBUTION WIDTH 16.7 % (11.5-14.5); WHITE BLOOD COUNT 4.1 x10^3/uL (4.0-11.0)
[2021-09-17] MEDS ORDERED: MORPHINE SULFATE 4 MG/ML DISP.SYRIN. IV ONE ×3 (04:45→09:00)
[2021-09-17] MEDS ORDERED: ONDANSETRON PF 4 MG/2 ML VIAL. IVP ONE (04:45)
--- NOTE | 2021-09-17 04:52 | RAD ---
EXAMINATION: CT ABDOMEN+PELVIS W CLINICAL HISTORY: etoh abuse, RUQ pain. TECHNIQUE: CT of the abdomen and pelvis was performed using standard technique, scanning from just ab ove the dome of the diaphragm to the symphysis pubis following administration of intravenous contrast . CT Dose Reduction Employed: One or more of the following individualized dose reduction techniques wer e utilized for this examination: 1. Automated exposure control 2. Adjustment of the mA and/or kV ac cording to patient size 3. Use of iterative reconstruction technique. COMPARISON: 02/14/2017 FINDINGS: Visualized heart and lungs unremarkable. Hepatomegaly with marked steatosis. Mildly dilated gallbladder. No biliary ductal dilation. Pancreas, spleen, adrenal glands, and kidneys unremarkable. Minimally filled urinary bladder. Nonenlarged prostate. Prominent intramural fat in the terminal ileum and throughout the colon, nonspecific but suggestive o f inflammatory bowel disease/chronic colitis. No dilated bowel. Appendix within normal limits. No abdominal aortic or iliac artery aneurysm. Caval and bilateral iliac venous stent grafts. No evidence of acute osseous abnormality. Prominent subcutaneous abdominal varices. IMPRESSION: Mildly dilated gallbladder without calcified gallstones. If concerned for cholecystitis, recommend ri t upper quadrant ultrasound for further evaluation. Hepatomegaly with marked steatosis. Findings suggestive of inflammatory bowel disease/chronic colitis as described. Electronically signed by: Sampson Regalado DO (09/17/2021 4:49 AM) [facility]ITAL[facility]AN[facility]
--- NOTE | 2021-09-17 04:54 | RAD ---
EXAMINATION: XR EXAM OF ANKLE_RIGHT 3VIEWS CLINICAL HISTORY: Twisted ankle, bruising. TECHNIQUE: XR EXAM OF ANKLE_RIGHT 3VIEWS COMPARISON: None FINDINGS/ IMPRESSION: Oblique fracture through the distal fibular metadiaphysis extending nearly to the level of the syndes mosis with impaction and slight posterior displacement of the lateral malleolus. There is also cortic al irregularity at the level of the fracture compatible with minimal comminution and tiny fracture fr agments. Narrowing of the talofibular joint space. Soft tissue swelling most pronounced along the lat eral ankle. Electronically signed by: Sampson Regalado DO (09/17/2021 4:52 AM) JOSE
[2021-09-17 05:27] LABS: % BANDS 2 % (0-9); % LYMPHS 5 % (24-48); % MONOS 9 % (0-10); % SEGS 84 % (35-66); ANISOCYTOSIS MOD; HYPOCHROMIA SLIGHT; PLT ESTIMATE ADEQUATE (ADEQUATE)
[2021-09-17 05:28] LABS: SCHISTOCYTES FEW
[2021-09-17 06:05] LABS: CLARITY,URINE HAZY; COLOR,URINE AMBER; GLUCOSE,URINE NEG (NEG); NITRITE,URINE NEG (NEG)
[2021-09-17 06:06] LABS: BACTERIA,URINE FEW /HPF (0-FEW); HYALINE CASTS, URINE MANY /HPF; SQUAMOUS EPITHELIAL CELL,UR MOD /LPF
[2021-09-17 06:23] LABS: CALCIUM 7.6 mg/dL (8.5-10.1); CREATININE 1.3 mg/dL (0.7-1.3); GFR 63.2; POTASSIUM 3.8 mmol/L (3.5-5.1)
--- NOTE | 2021-09-17 06:27 | EKG ---
[address] [address] Test Date: 2021-09-17 Test Time: 04:53:46 Pat Name: LISA FONTAINE Department: Room: Gender: M Web Developer: : 1985 Requested By: JULIANO MERCHANT Order Number: [id number] Reading MD: Reinier De La Rosa MD Measurements Intervals [place] Rate: 108 P: 41 WI: 144 QRS: 6 QRSD: 92 T: 22 QT: 304 QTc: 411 Interpretive Statements SINUS TACHYCARDIA Electronically Signed On 09-19-2021 7:02:06 CDT by Reinier De La Rosa MD
[2021-09-17 08:28] VITALS: BP 158/82
== END 2021-09-17 09:00 | disposition short-term general hospital (02) ==
LOC: ER 02:58
DX: S82.832A Other fracture of upper and lower end of left fibula, initial encounter for closed fracture (principal); E87.1 Hypo-osmolality and hyponatremia; K74.60 Unspecified cirrhosis of liver; F10.20 Alcohol dependence, uncomplicated; I48.91 Unspecified atrial fibrillation; Z86.718 Personal history of other venous thrombosis and embolism; Y90.3 Blood alcohol level of 60-79 mg/100 ml; W01.0XXA Fall on same level from slipping, tripping and stumbling without subsequent striking against object, initial encounter; Y93.89 Activity, other specified; Y92.89 Other specified places as the place of occurrence of the external cause; Y99.8 Other external cause status
CPT/HCPCS: 36415; 73610; 74177; 80048; 80053; 81001; 84484; 85007; 85025; 93005; 96361; 96365; 96375; 96376; 99285; G0480; J2060; J2270; J2405; J3230; J7030; Q9967